=== PATIENT | female | born 1975 | race Caucasian/White ===

== ENCOUNTER 2018-05-03 14:32 | Emergency (ER) | payer OTHER ==
[2018-05-03 14:41] VITALS: BP 133/87; PULSE 80; RESP 20; TEMP 99; O2SAT 98
[2018-05-03] MEDS ORDERED: Albuterol-Ipratrop 3 mg / 0.5 (3 ml) UD INH STA ×3 (15:08→16:06)
--- NOTE | 2018-05-03 15:34 | ED PDOC ---
HPI: SOB/CHF/COPD Time Seen by Provider: 05/03/18 14:49 Chief Complaint (Nursing): Shortness Of Breath Chief Complaint (Provider): Asthma History Per: Patient History/Exam Limitations: no limitations Onset/Duration Of Symptoms: Days (x2) Current Symptoms Are (Timing): Still Present Additional Complaint(s): Saida May, a 42 year old female with past medical history of asthma, presents to the emergency department with a worsening asthma onset since yesterday. 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 She took x2 Albuterol treatments yesterday , once when she got home from work and one before she went to bed but none today. Patient states that she feels tired but denies cough, fever, chills, headache, dizziness, shortness of breath, chest pain, leg swelling, nausea or vomiting. No further medical complaints. PMD: Shaik Mckeon Past Medical History Reviewed: Historical Data, Nursing Documentation, Vital Signs Vital Signs: Last Vital Signs Temp 99.0 F 05/03/18 14:38 Pulse 80 05/03/18 14:38 Resp 20 05/03/18 15:34 BP 133/87 05/03/18 14:38 Pulse Ox 98 05/03/18 15:58 - Medical History PMH: Asthma, Gall Bladder Disease (stones removed) - Surgical History Surgical History: Cholecystectomy, Tonsillectomy, (x2) - Family History Family History: States: Unknown Family Hx - Social History Current smoker - smoking cessation education provided: Yes (Some days smoker) Alcohol: None Drugs: Denies - Immunization History Hx Tetanus Toxoid Vaccination: No Hx Influenza Vaccination: No Hx Pneumococcal Vaccination: No - Home Medications Home Medications: Ambulatory Orders Medication Instructions Recorded Cyclobenzaprine [Cyclobenzaprine 10 mg PO Q8 PRN #9 tab 08/02/15 HCl] Acetaminophen/Hydrocodone Bi 1 tab PO TID PRN 02/27/18 [Vicodin 300 mg-5 mg] Albuterol HFA [Ventolin HFA 90 2 puff IH [id number] PRN 02/27/18 mcg/actuation (8 g)] Gabapentin 1 tab PO TID 02/27/18 Ibuprofen [Motrin] 600 mg PO Q6 PRN #20 tab 06/11/18 Albuterol 0.083% [Albuterol 0.083% 2.5 mg IH Q4H #50 neb 05/03/18 Inhal Lorena (2.5 mg/3 ml) UD] predniSONE [predniSONE Tab] 60 mg PO DAILY #15 tab 05/03/18 - Allergies Allergies/Adverse Reactions: Allergies Allergy/AdvReac Type Severity Reaction Status Date / Time No Known Allergies Allergy Verified 05/03/18 14:38 Review of Systems ROS Statement: Except As Marked, All Systems Reviewed And Found Negative Constitutional: Negative for: Fever, Chills Cardiovascular: Negative for: Chest Pain Respiratory: Negative for: Cough, Shortness of Breath Gastrointestinal: Negative for: Nausea, Vomiting Neurological: Negative for: Headache, Dizziness Physical Exam - Reviewed Nursing Documentation Reviewed: Yes Vital Signs Reviewed: Yes - Physical Exam Appears: Positive for: Non-toxic, No Acute Distress Head Exam: Positive for: ATRAUMATIC, NORMAL INSPECTION, NORMOCEPHALIC Skin: Positive for: Normal Color, Warm, Dry Eye Exam: Positive for: EOMI, Normal appearance, PERRL ENT: Positive for: Normal ENT Inspection Neck: Positive for: Normal, Painless ROM Cardiovascular/Chest: Positive for: Regular Rate, Rhythm. Negative for: Edema, Murmur Respiratory: Positive for: Other (decreased air movement). Negative for: Wheezing, Respiratory Distress Gastrointestinal/Abdominal: Positive for: Normal Exam, Soft. Negative for: Tenderness Back: Positive for: Normal Inspection Extremity: Positive for: Normal ROM (upper and lower). Negative for: Calf Tenderness, Deformity, Swelling Neurologic/Psych: Positive for: Alert, Oriented. Negative for: Motor/Sensory Deficits - Laboratory Results Result Diagrams: 05/03/18 16:31 - ECG O2 Sat by Pulse Oximetry: 98 (RA) Pulse Ox Interpretation: Normal Medical Decision Making Medical Decision Making: Time: 14:49 Initial Impression: asthma exacerbation Initial Plan: --EKG --BMP --CBC w/differential --Albuterol 3 ml INH --Methylprednisolone 125 mg IVP --IV insertion --Nebulizer treatment --Peak flow pre/post Scribe Attestation: Documented by Isabel Savage, acting as a scribe for Kate Colin MD. Provider Scribe Attestation: All medical record entries made by the Scribe were at my direction and personally dictated by me. I have reviewed the chart and agree that the record accurately reflects my personal performance of the history, physical exam, medical decision making, and the department course for this patient. I have also personally directed, reviewed, and agree with the discharge instructions and disposition. 4.30p - initial peak flow 150. Peak flow after 3 nebs and steroids 220 max. patient not wheezing but does not feel okay. offered admission. patient declined. she prefers a trial of oral steroids and nebs at home. advised to give max of 24 hours or less and return to ER for admission if not feeling better or worse. Disposition - Clinical Impression Clinical Impression: Asthma - Patient ED Disposition Is Patient to be Admitted: No Doctor Will See Patient In The: Office Counseled Patient/Family Regarding: Diagnosis, Need For Followup, Rx Given - Disposition Referrals: Shaik Mckeon MD [Family Provider] - Disposition: Routine/Home Disposition Time: 16:40 Condition: FAIR Prescriptions: Albuterol 0.083% [Albuterol 0.083% Inhal Lorena (2.5 mg/3 ml) UD] 2.5 mg IH Q4H # 50 neb predniSONE [predniSONE Tab] 60 mg PO DAILY #15 tab Instructions: Peak Flow Meter, Asthma in Adults Forms: [employer] ([place]) - POA Present On Arrival: None
[2018-05-03] MEDS ORDERED: Albuterol-Ipratrop 3 mg / 0.5 (3 ml) UD ONE (16:08)
[2018-05-03 16:35] LABS: BASO # 0.1 K/uL (0.0-0.2); EOS # 0.2 K/uL (0.0-0.7); EOS % 3.3 % (0.0-4.0); HEMOGLOBIN 12.8 g/dL (12.0-16.0); LYMPH # 1.9 K/uL (1.0-4.3); MEAN CELL VOLUME 92.7 fl (81.0-99.0); MEAN CORPUSCULAR HEMOGLOBIN 31.4 pg (27.0-31.0); MEAN CORPUSCULAR HGB CONC 33.9 g/dL (33.0-37.0); MEAN PLATELET VOLUME 10.2 fl (7.2-11.7); MONO # 0.4 K/uL (0.0-0.8); NEUT # 4.2 K/uL (1.8-7.0); NEUT % 61.7 % (50.0-75.0); RBC 4.08 Mil/uL (3.80-5.20); RED CELL DISTRIBUTION WIDTH 13.6 % (11.5-14.5); WHITE BLOOD COUNT 6.8 K/uL (4.8-10.8)
[2018-05-03 16:56] LABS: BLOOD UREA NITROGEN 12 mg/dl (7-17); CALCIUM 9.1 mg/dL (8.4-10.2); GFR AFRICAN-AMERICAN > 60; GFR NON-AFRICAN AMERICAN > 60
--- NOTE | 2018-05-04 07:47 | CARD ---
APPROVED REPORT Date of service: 05/03/2018 <Conclusion> Normal sinus rhythm Normal ECG
== END 2018-05-03 17:00 | disposition home or self-care (01) ==
LOC: H.ER 14:32
DX: J45.901 Unspecified asthma with (acute) exacerbation (principal)
CPT/HCPCS: 80048; 85025; 93005; 94640; 96374; 99283; J2930